=== PATIENT | male | born 1985 ===

== ENCOUNTER 2017-12-31 10:04 | Emergency (ER) | payer OTHER ==
[2017-12-31 10:17] VITALS: TEMP 98.2
--- NOTE | 2017-12-31 10:31 | C.PDOC ---
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 States patient was at baseline, " I heard a thump" and witnessed patient on floor having a seizure- like activity. Per family, patient has not had a seizure "in a long time" and is on Topamax "occasionally." Patient has improving mental status, is baseline nonverbal. Patient is not "not very talkative" but interactive. +scalp laceration. no nausea, vomiting. Additional history limited secondary to patient 's clinical condition. LIMITED DUE TO CLIN COND S/P WITNESSED SZ PER ADULT CARE EMPLOYEE 1 HR COMMUNITY ORGANIZATION WORKER. STATES PT WAS AT BASELINE, " I HEARD A THUMP" AND WITNESSED PT ON FLOOR HAVING SZ LIKE ACTIVITY. PS THAT PER FAMILY PT HAS NOT HAD A SEIZURE "IN A LONG TIME" AND IS ON TOPAMAX "OCCASIONALLY ". PT IMPROVING MENTAL STATUS, IS BASELINE NONVERBAL "NOT VERY TALKATIVE" BUT INTERACTIVE. +SCALP LAC. NO NV. ROS UTO EXAM MILD DIST NONTOXIC HEENT +CONTUSION POST SCALP; FACE ATRAUM NEURO NO SZ ACTIVITY. AWAKE, APPROPRIATE INTERACTION LIMITED VERBAL. RESPONDS YES NO. NO GROSS FOCAL DEF SKIN LAC POST SCALP W MIN ACTIVE BLEEDING REMAINDER NEG Time Seen by Provider: 12/31/17 10:10 Chief Complaint (Nursing): Seizure History Per: Patient, EMS, Family History/Exam Limitations: clinical condition Recent Seizure Activity Began: Hours Ago: (1) Number Of Seizures: One Length Of Seizures (Duration): Unknown Additional History Per: Patient, EMS, Family Past Medical History Reviewed: Historical Data, Nursing Documentation, Vital Signs Vital Signs: Last Vital Signs Temp 98.2 F 12/31/17 10:11 Pulse 88 12/31/17 14:08 Resp 22 12/31/17 14:08 BP 100/51 L 12/31/17 14:08 Pulse Ox 93 L 12/31/17 23:11 - Medical History PMH: Seizures Surgical History: No Surg Hx Family History: States: Unknown Family Hx - Social History Hx Alcohol Use: No Hx Substance Use: No - Immunization History Hx Tetanus Toxoid Vaccination: No Hx Influenza Vaccination: No Hx Pneumococcal Vaccination: No Review Of Systems Review Of Systems: ROS cannot be obtained secondary to pt's inabilty to answer questions. Physical Exam - Physical Exam Appears: Non-toxic, Other (in mild distress ) Skin: Normal Color, Warm, Dry, Other (laceration to posterior scalp with minimal active bleeding ) Head: Other (contusion to posterior scalp. face atraumatic ) Eye(s): bilateral: Normal Inspection Oral Mucosa: Moist Neck: Supple Chest: Symmetrical, No Deformity, No Tenderness Cardiovascular: Rhythm Regular, No Murmur Respiratory: Normal Breath Sounds, No Rales, No Rhonchi, No Wheezing Gastrointestinal/Abdominal: Soft, No Tenderness, No Guarding, No Rebound Extremity: Normal ROM, Capillary Refill (less than 2 seconds ) Neurological/Psych: Other (no seizure activity. awake, appropriate interaction. limited verbal. responds yes/no. no gross focal deficits) ED Course And Treatment - Laboratory Results Result Diagrams: 12/31/17 10:51 12/31/17 10:51 O2 Sat by Pulse Oximetry: 93 Progress Note: Bloodwork, CT Head ordered and reviewed. Toradol IVP, Tylenol PO , Depacon IVP, and Zofran IVP administered. Progress - Re-Evaluation Re-evaluation Note: 12/31/17 12:42 FAMILY @ BEDSIDE. NO RECUR SZ SINCE INITIAL EVAL. FAMILY STATES PT NO SZ SINCE CHILDHOOD, WAS ADVISED BY NEUROLOGIST TO DC TOPAMAX. LAST DOSE 10 DAYS AGO. FAMILY STATES PT IS BASELINE NONVERBAL, CONCERNED PT APPEARS UPSET AND UNCOMFORTABLE "HE ONLY CRIES WHEN SOMETHING I HURTING HIM". SUPERFICIAL ABRASION SCALP, WELL APPROXIMATED. FAMILY ADVISED NO NEED TO REPAIR DUE TO SUPERIFICAL WOUND BUT GIVEN OPTION FOR STAPLE REPAIR. FAMILY DOES NOT WISH REPAIR, CONSERVATIVE WOUND CARE ONLY. ABD SOFT NT ND NO R/G NEURO INTACT AWAKE APPROPRIATELY INTERACTIVE, CRYING BUT CONSOLABLE BY FAMILY. WILL DOSE PAIN MEDS, REEVAL 12/31/17 14:26 APPEARS COMFORTABLE NO RECUR SZ. AMBUL WO DIFF, +PO TRIAL. 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 AWARE OF ER FINDINGS. RECOMMENDS IV DEPAKOTE 1 GM, DC DEPAKOTE 500 MG BID FU OFFICE. FAMILY AGREES W DC PLAN - Data Reviewed Data Reviewed: Lab, Diagnostic imaging, Old records Disposition Counseled Patient/Family Regarding: Studies Performed, Diagnosis, Need For Followup, Rx Given - Disposition Referrals: Shey Tony MD [Staff Provider] - Disposition: HOME/ ROUTINE Disposition Time: 14:36 Condition: IMPROVED Prescriptions: Divalproex [Depakote DR(*BID*)] 500 mg PO BID #30 ect Instructions: Seizures, Adult (DC), Wound Care (DC) Forms: [employer] (Moroccan) - Clinical Impression Clinical Impression: Scalp abrasion, Breakthrough seizure, Minor head injury - Scribe Statement The provider has reviewed the documentation as recorded by the Scribe (Dorita Castillo) Provider Attestation: All medical record entries made by the Scribe were at my direction and personally dictated by me. I have reviewed the chart and agree that the record accurately reflects my personal performance of the history, physical exam, medical decision making, and the department course for this patient. I have also personally directed, reviewed, and agree with the discharge instructions and disposition.
[2017-12-31 10:55] LABS: BASO # 0.1 K/uL (0.0-0.2); BASO % 0.5 % (0.0-2.0); EOS # 0.3 K/uL (0.0-0.7); EOS % 2.4 % (0.0-4.0); LYMPH # 1.5 K/uL (1.0-4.3); LYMPH % 13.6 % (20.0-40.0); MEAN CELL VOLUME 85.8 fL (80.0-94.0); MEAN CORPUSCULAR HEMOGLOBIN 29.4 pg (27.0-31.0); MEAN CORPUSCULAR HGB CONC 34.3 g/dL (33.0-37.0); MEAN PLATELET VOLUME 8.4 fL (7.2-11.7); MONO # 0.6 K/uL (0.0-0.8); NEUT # 8.9 K/uL (1.8-7.0); NEUT % 78.5 % (50.0-75.0); NRBC % 0.1 % (0.0-2.0); RBC 5.76 Mil/uL (4.40-5.90); RED CELL DISTRIBUTION WIDTH 13.4 % (11.5-14.5); WHITE BLOOD COUNT 11.4 K/uL (4.8-10.8)
[2017-12-31 11:07] LABS: BLOOD UREA NITROGEN 9 mg/dL (9-20); GFR AFRICAN-AMERICAN > 60; GFR NON-AFRICAN AMERICAN > 60
--- NOTE | 2017-12-31 11:40 | CT ---
PROCEDURE: CT HEAD WITHOUT CONTRAST. HISTORY: seizure TRAUMA COMPARISON: None available. TECHNIQUE: Axial computed tomography images were obtained through the head/brain without intravenous contrast. Radiation dose: Total exam DLP = 987.36 mGy-cm. This CT exam was performed using one or more of the following dose reduction techniques: Automated exposure control, adjustment of the mA and/or kV according to patient size, and/or use of iterative reconstruction technique. FINDINGS: HEMORRHAGE: No intracranial hemorrhage. BRAIN: No mass effect or edema. No atrophy or chronic microvascular ischemic changes. VENTRICLES: Unremarkable. No hydrocephalus. CALVARIUM: Unremarkable. PARANASAL SINUSES: Sphenoid retention cyst/polyp. MASTOID AIR CELLS: Unremarkable as visualized. No inflammatory changes. OTHER FINDINGS: None. IMPRESSION: No intracranial hemorrhage. Incidental sphenoid retention cyst/polyp. Otherwise unremarkable.
[2017-12-31 14:09] VITALS: BP 100/51; PULSE 88; RESP 22
[2017-12-31 14:31] VITALS: O2SAT 93
[2017-12-31] MEDS ORDERED: Valproate 1,000 MG in Sodium Chloride 0.9% 100 ML IVPB STA (14:31)
== END 2017-12-31 16:05 | disposition home or self-care (01) ==
LOC: C.ER 10:04
DX: G40.909 Epilepsy, unspecified, not intractable, without status epilepticus (principal); S00.01XA Abrasion of scalp, initial encounter; W19.XXXA Unspecified fall, initial encounter; Y92.89 Other specified places as the place of occurrence of the external cause
CPT/HCPCS: 70450; 80048; 82948; 85025; 96365; 96375; 99285; J1885; J2405